=== PATIENT | female | born 1980 | race Caucasian/White ===

== ENCOUNTER 2017-11-01 09:40 | Emergency (ER) | payer BC, MEDICAID ==
[~2017-11-01] VITALS: Ht 172.7 cm; Wt 87.0 kg
[~2017-11-01 09:40] MED LIST: BUSP-29 PO; EFEX1 PO; GABA300S PO; HYDR200T80 PO; LEVO50TA8 PO; MELA5TAB3 PO; PREN-88 PO
[2017-11-01 09:52] VITALS: BP 118/77
[2017-11-01] MEDS ORDERED: SODIUM CHLORIDE 0.9% 1,000 ML IV ONE (10:22)
[2017-11-01 11:43] LABS: BASOPHILS % 0.6 % (0.0-2.0); EOSINOPHILS % 0.2 % (0.0-5.0); HEMATOCRIT. 39.7 % (36.0-48.0); HEMOGLOBIN. 13.6 g/dL (12.0-16.0); LYMPHOCYTES % 21.9 % (20.0-50.0); MEAN CORPUSCULAR VOLUME 87.3 fL (81.0-99.0); MONOCYTES % 4.6 % (2.0-8.0); NEUTROPHILS % 72.7 % (40.0-76.0); PLATELET 297 x1000/uL (130-400); RED BLOOD CELL COUNT 4.54 mill/uL (4.2-5.4); RED CELL DISTRIBUTION WIDTH 13.6 % (11.6-14.6)
[2017-11-01 11:47] LABS: CHLORIDE 112 mEq/L (98-107)
[2017-11-01 11:59] LABS: HCG SCREEN NEGATIVE
[2017-11-01 12:00] LABS: ETHANOL BLOOD 302 mg/dL
== END 2017-11-01 11:10 | disposition left against medical advice (07) ==
LOC: ER 09:40
DX: F10.129 Alcohol abuse with intoxication, unspecified (principal); R79.89 Other specified abnormal findings of blood chemistry; J45.909 Unspecified asthma, uncomplicated; E03.9 Hypothyroidism, unspecified; Y90.8 Blood alcohol level of 240 mg/100 ml or more
CPT/HCPCS: 36415; 80053; 84703; 85025; 99284; G0482; J7030